=== PATIENT | female | born 1960 ===

== ENCOUNTER 2021-10-01 21:33 | Emergency (ER) | payer MEDICAID ==
[2021-10-01] MEDS ORDERED: Ondansetron 4 MG/2 ML SDV IVPUSH ONE (22:09)
[2021-10-01] MEDS ORDERED: Lactated Ringers 1,000 ML IV ONE (22:09)
[2021-10-01] MEDS ORDERED: Lactated Ringers 1,000 ML IV SCH (22:15)
== END 2021-10-02 06:50 | disposition home or self-care (01) ==
LOC: JD.ED 21:33
DX: N39.0 Urinary tract infection, site not specified (principal); F10.10 Alcohol abuse, uncomplicated; Z88.1 Allergy status to other antibiotic agents; Z88.8 Allergy status to other drugs, medicaments and biological substances; Z88.0 Allergy status to penicillin; Z88.2 Allergy status to sulfonamides
CPT/HCPCS: 36415; 80053; 80306; 80307; 81001; 82977; 85025; 85610; 87086; 96361; 96374; 99284; J2405; J7120; 99283